=== PATIENT | female | born 1940 | race Caucasian/White ===

== ENCOUNTER → 2021-01-04 04:07 | Outpatient (REF) | payer MEDICARE, OTHER, SELFPAY ==
[2021-01-04 08:46] LABS: Absolute Lymphocyte Count 0.69 X10^3/uL (0.83-4.51); Absolute Neutrophil Count 2.5 X10^3/uL (2.0-7.7); Basophil# 0.04 X10^3/uL; Eosinophil# 0.24 X10^3/uL; Eosinophils% 6.2 % (0-5); Hematocrit 40.4 % (37-47); Hemoglobin 12.6 g/dL (12.0-15.0); Lymphocyte # 0.69 X10^3/ul (0.83-4.51); Lymphocyte % 17.8 % (19-41); Mean Corp Hgb Conc 31.2 g/dL (32-36); Mean Corpuscular Hgb 29.1 pg (27.0-32.0); Mean Corpuscular Volume 93.3 fL (81-99); Mean Platelet Vol. 9.4 fl (6.2-12.0); Monocyte% 10.3 % (0-10); NRBC Flagged by Analyzer 0 % (0-5); Neutrophil # 2.47 X10^3/uL (2.7-7.7); Neutrophil % 63.9 % (47-70); Platelet Count 164 K/mm3 (150-450); RBC Distribution Width CV 13.9 % (11.6-14.6); RBC Distribution Width SD 48.2 fl (35.1-43.9); Red Blood Count 4.33 M/mm3 (4.2-5.4); White Blood Count 3.9 K/mm3 (4.4-11.0)
[2021-01-04 08:56] LABS: ALB/GLOB Ratio 1.4 RATIO (0.9-2.4); AST(SGOT) 24 U/L (15-37); Alanine Aminotransfer ALT/SGPT 18 U/L (13-56); Albumin, Serum 3.6 g/dL (3.2-5.0); Alkaline Phosphatase 77 U/L (45-117); Anion Gap 6 (5-15); BUN 17 mg/dL (7-18); BUN/Creat Ratio 26.4 RATIO (10-20); Calcium,Total 8.5 mg/dL (8.5-10.1); Chloride 101 mmol/L (98-107); Creatinine, Serum 0.64 mg/dL (0.55-1.02); EST Glomerular Filtration Rate 94 mL/min (>60); Est Glom Filt Rate - Afr Amer 114 mL/min (>60); Globulin 2.5 g/dL (2.2-4.2); Glucose 101 mg/dL (74-106); Potassium 4.4 mmol/L (3.5-5.1); Protein, Total 6.1 g/dL (6.4-8.2); Sodium Level 135 mmol/L (136-145); Thyroid Stim Hormone (TSH) 3.39 uIU/mL (0.358-3.74)
[2021-01-04 15:52] LABS: BNP,B-Type NATRIURETIC PEPTIDE 189.6 pg/mL (0-100)
[2021-01-04 16:09] LABS: Vitamin B12 378 pg/mL (211-911)
== END ==
PROVIDERS: Referring Provider Family Medicine; Visit Provider Family Medicine
DX: I50.9 Heart failure, unspecified (principal); J44.9 Chronic obstructive pulmonary disease, unspecified; E03.9 Hypothyroidism, unspecified
CPT/HCPCS: 36415; 80053; 82607; 83880; 84443; 85025

== ENCOUNTER → 2021-01-18 05:00 | Outpatient (REF) | payer MEDICARE, OTHER, SELFPAY ==
[2021-01-18 08:33] LABS: Hematocrit 45.3 % (37-47); Hemoglobin 14.2 g/dL (12.0-15.0); Mean Corp Hgb Conc 31.3 g/dL (32-36); Mean Corpuscular Hgb 29.5 pg (27.0-32.0); Mean Corpuscular Volume 94.2 fL (81-99); Mean Platelet Vol. 9.4 fl (6.2-12.0); Platelet Count 184 K/mm3 (150-450); RBC Distribution Width CV 13.9 % (11.6-14.6); RBC Distribution Width SD 48.1 fl (35.1-43.9); Red Blood Count 4.81 M/mm3 (4.2-5.4); White Blood Count 6.1 K/mm3 (4.4-11.0)
[2021-01-18 08:52] LABS: ALB/GLOB Ratio 1.6 RATIO (0.9-2.4); AST(SGOT) 15 U/L (15-37); Alanine Aminotransfer ALT/SGPT 23 U/L (13-56); Albumin, Serum 3.9 g/dL (3.2-5.0); Alkaline Phosphatase 68 U/L (45-117); Anion Gap 4 (5-15); BUN 20 mg/dL (7-18); Calcium,Total 8.4 mg/dL (8.5-10.1); Chloride 100 mmol/L (98-107); Creatinine, Serum 0.65 mg/dL (0.55-1.02); EST Glomerular Filtration Rate 94 mL/min (>60); Est Glom Filt Rate - Afr Amer 114 mL/min (>60); Globulin 2.5 g/dL (2.2-4.2); Glucose 106 mg/dL (74-106); Potassium 4.5 mmol/L (3.5-5.1); Protein, Total 6.4 g/dL (6.4-8.2); Sodium Level 137 mmol/L (136-145)
== END ==
PROVIDERS: Visit Provider Family Medicine
DX: I48.91 Unspecified atrial fibrillation (principal); J44.9 Chronic obstructive pulmonary disease, unspecified; I10 Essential (primary) hypertension; E03.9 Hypothyroidism, unspecified
CPT/HCPCS: 36415; 80053; 84443; 85027

== ENCOUNTER → 2021-04-13 12:58 | Outpatient (CLI) | payer MEDICARE, OTHER, SELFPAY ==
--- NOTE | 2021-04-16 07:36 | PFT ---
INTRODUCTION: The patient is an 81-year-old female that presents for pulmonary function studies secondary to a diagnosis of dyspnea. Respiratory therapy reported good patient effort. Bronchodilators were used during testing. 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 There was no significant response to aerosolized bronchodilators. Spirograms are of good quality and plateau normally. Body plethysmography was performed and revealed an elevated RV to 139% of predicted, indicative of underlying air trapping. Diffusing capacity by single breath CO is reduced to 64% of predicted. IMPRESSION: Irreversible moderately severe large airways obstructive ventilatory defect with associated air trapping and symmetric reduction in diffusing capacity.
== END ==
PROVIDERS: PCP Family Medicine; Referring Provider Internal Medicine Critical Care Medicine; Visit Provider Internal Medicine Critical Care Medicine
DX: R06.00 Dyspnea, unspecified (principal)
CPT/HCPCS: 94060; 94726; 94729

== ENCOUNTER → 2021-04-14 11:58 | Outpatient (CLI) | payer MEDICARE, OTHER, SELFPAY ==
[2021-04-14 12:38] VITALS: PULSE 57; PULSE 70; PULSE 72; PULSE 75; PULSE 83; PULSE 85; O2SAT 82; O2SAT 91; O2SAT 95; O2SAT 96; O2SAT 97
--- NOTE | 2021-04-14 12:41 | CPS ---
Patient walked 120 ft and dropped to 82% after 2 min. Patient states that she normally doesn't walk more than that at the assisted living center. Patient walked 120 ft on 2L and stayed above 91% the entire time.
--- NOTE | 2021-04-16 07:47 | PCM.PSN.6M ---
PSN 6 Minute Walk Test 6 Minute Walk Test 6 Minute Walk Test: 6 Minute Walk Test PSN:6-Minute Walk Test Start: 04/14/21 12:38 Freq: Status: Active Protocol: [id number].6MINW Document 04/14/21 12:38 MIKO (Rec: 04/14/21 12:47 JLA [id number]) 6 Minute Walk Test Date Performed 04/14/21 Time Performed 12:30 Height 5 ft 2 in Weight: 109.316 kg Weight in Pounds 241.[address]: Mo Hudson Assistive device used: Walker Pre-test Oxygen Delivery Method Room Air Pulse Ox (%) 91 Pulse Rate (60-100 beats/min) 57 L Dyspnea Shaista Scale (0-10) 0 Exertion Shaista Scale (6-20) 6 1st minute Oxygen Delivery Method Room Air Pulse Ox (%) 91 Pulse Rate (60-100 beats/min) 72 2nd minute Oxygen Delivery Method Room Air Pulse Ox (%) 82 Pulse Rate (60-100 beats/min) 85 Dyspnea Shaista Scale (0-10) 2 Exertion Shaista Scale (6-20) 13 3rd minute Oxygen Flow Rate (L/min) (L/min) 2 Oxygen Delivery Method Nasal Cannula Pulse Ox (%) 97 Pulse Rate (60-100 beats/min) 70 4th minute Oxygen Flow Rate (L/min) (L/min) 2 Oxygen Delivery Method Nasal Cannula Pulse Ox (%) 96 Pulse Rate (60-100 beats/min) 83 5th minute Oxygen Flow Rate (L/min) (L/min) 2 Oxygen Delivery Method Nasal Cannula Pulse Ox (%) 95 Pulse Rate (60-100 beats/min) 75 Dyspnea Shaista Scale (0-10) 0 Exertion Shaista Scale (6-20) 13 Full Laps Walked 4 Partial Lap, Number of Tiles Walked 0 Total Distance Walked (ft) 236 04/14/21 12:41 Cardiopulmonary Services by Jeanette Rangel Patient walked 120 ft and dropped to 82% after 2 min. Patient states that she normally doesn't walk more than that at the assisted living center. Patient walked 120 ft on 2L and stayed above 91% the entire time. Initialized on 04/14/21 12:41 - END OF NOTE Interpretation Interpretation: The patient ambulated 236 feet over the course of 4 minutes with the use of a walker. Pretesting oxygen saturation was noted to be 91% on room air. With ambulation, the katie oxygen saturation was 82%. 2 L/min of supplemental oxygen was applied and the patient was able to complete the remainder of 4 minutes of testing while maintaining appropriate oxygen saturations. Recommendations Recommendations: 2 L/min of supplemental oxygen should be utilized with exertion.
== END ==
PROVIDERS: PCP Family Medicine; Referring Provider Internal Medicine Critical Care Medicine; Visit Provider Internal Medicine Critical Care Medicine
DX: R06.00 Dyspnea, unspecified (principal)
CPT/HCPCS: 94618

== ENCOUNTER 2021-07-22 04:00 | Outpatient (REF) | payer MEDICARE, OTHER, SELFPAY ==
[2021-07-22 09:10] LABS: Hemoglobin A1c 5.6 % (3.8-5.6)
== END 2021-07-22 23:59 | disposition home or self-care (01) ==
PROVIDERS: PCP Family Medicine; Referring Provider Family Medicine; Visit Provider Family Medicine
DX: E11.9 Type 2 diabetes mellitus without complications (principal)
CPT/HCPCS: 36415; 83036

== ENCOUNTER 2021-08-19 16:52 | Outpatient (CLI) | payer MEDICARE, OTHER, SELFPAY ==
--- NOTE | 2021-08-19 16:58 | CT_ITS ---
STUDY: CT SCAN FEMUR LEFT REASON FOR EXAM: Female, 81 years old. PAIN IN LT HIP -- CT LT HIP/FEMUR RADIATION DOSAGE (If Supplied By Facility): CTDIvol = ( 27.49 ) mGy, DLP = ( 1852.38 ) mGycm. Individualized dose optimization techniques were used for this CT.? TECHNIQUE: Multiple axial tomographic images of the left femur were obtained. Coronal and sagittal reconstruction was obtained as well. COMPARISON: None. FINDINGS: The patient is status post open reduction and internal fixation of the left intratrochanteric fracture utilizing compression screw fixation device. The patient is status post left total knee replacement. No evidence of fracture. No bony destruction is seen. CT/Extremity Lower without Contra IMPRESSION: No acute abnormality is seen. Electronically Signed: Bhavin Jeong MD at 15:19 EST ,
== END 2021-08-19 23:59 | disposition home or self-care (01) ==
LOC: CT 16:56
PROVIDERS: PCP Family Medicine; Referring Provider Physician Assistant; Visit Provider Physician Assistant
DX: S72.142A Displaced intertrochanteric fracture of left femur, initial encounter for closed fracture (principal); X58.XXXA Exposure to other specified factors, initial encounter
CPT/HCPCS: 73700

== ENCOUNTER → 2021-08-31 | Outpatient (REF) | payer MEDICARE, OTHER, SELFPAY ==
[2021-09-01 08:58] LABS: Mucous, Urine 0 SEEN /hpf (<or=2+)
[2021-09-01 09:20] LABS: Color, Urine Yellow (Yellow); Glucose, Dipstick Normal (Normal); Ketone-Dipstick Negative (Negative); Leukocyte Esterase-Dipstick 500 /ul (Negative); Nitrite-Dipstick Positive (Negative); Occult Blood-Urine 25 /ul (Negative); Protein-Dipstick Negative (Negative); Urine Bilirubin Dipstick Negative (Negative); Urine Clarity Cloudy (Clear); Urine Urobilinogen Normal (Normal); Urine pH 6.5 (5.0 - 8.0)
[2021-09-01 09:31] LABS: Bacteria 4+ /hpf (None Seen); Red Blood Cells-Urine 0-5 SEEN /hpf (0-5); Squamous Epithelial Cells - UA 0-5 SEEN /hpf (5-10); White Blood Cells 10-25 SEEN /hpf (0-5)
== END | disposition home or self-care (01) ==
PROVIDERS: PCP Family Medicine; Visit Provider Family Medicine
DX: N39.0 Urinary tract infection, site not specified (principal)
CPT/HCPCS: 81001; 87077; 87086; 87088; 87186

== ENCOUNTER 2021-12-15 10:00 | Outpatient (RCR) | payer MEDICARE, OTHER, SELFPAY ==
--- NOTE | 2021-10-07 10:51 | HP.PTEVAL_ITS ---
Patient's Visit Information ELÍAS GILBERT is a 81 year old F referred to Physical Therapy by Dr. Delroy Oliveira MD with a diagnosis of L femur necrosis, obesity. Date of Evaluation: 10/07/21 Physical Therapist: Esteban Loaiza DPT, OCS, CSCS - Visit Plan Frequency: 3x /Week Duration: 4-6 Weeks Plan: 3x/week for 3-6 weeks for AT to address: 1. L:E and core weakness. 2. stretch quads and HS and psoas. 3. balance and mobility. Pt will need rail at least, possibly in pool assist. Lives at [place] and will need extra time to dress and dry off after. She stated I with dressing . Is to go to bathroom prior to pool time. Not incontinent of bowel and manageable bladder with pre pool void. - Subjective Aug 16 broke L hip with a fall , had a andrew put in last July. Used a wh walker and WC since. Used cane prior. Tripped on cane in kitchen. No other falls since. L groin hurts daily to 7/10 , 0/10 at rest. Sleeps well in recliner,doesnt get in adn out of bed.. Ride stationary Nustep at home without pain. Not employed. Spends day doing puzzles and playing cards. Lives alone at [facility]-term. Dress self, bathroom self, showers with assist. Othres clean. [place] brings her here. Surgery was at [facility], seeing Tee since. Doctor wants her in pool to exercise to walk better. May get DARSHANA if she can lose weight. - Pain L groin Pain Intensity (Out of 10): 0 Pain Intensity Range: 0, 7 - Objective A and O to person, place and day. Walks back to therapy with wh walker very slowly and labored, mild SOB at end and happy to sit. Has trendelenberg with walker. Unable to move feet without AD, fear and weakness. Transfer chair I with UE. Bed trasnfer needs LE assist in and out today. Stands with fear without AD 15 seconds and steady but fearful and will not move LE or do ec. reflexes 1/3 patella and achilles B. Sensation LE WNL to gross light touch. ROM is tight in hip flexors pulling on back in elevated supine with legs straight. L hip flexion to 90 PROM, IR very painful L PROM. AROM is poor due to weaness in hips, 3-/5 in rotations and abd and ext and 3 in flexion on L. R s maureen is 3+. knees 4- ext and flexion and ankles DF/PF 4- B. - Balance/Special Test Scores Lower Extremity Functional Score: 27 TUG Test Time Seconds: 45 30 Second Chair Rise Test Seconds: 2 - Goals Goal 1:: 5 30 second sit to stand and 25 TUG to show improved mobility Goal Time Frame: 4-6 Weeks Goal 2:: Pt feel 50% less pain and improved mobility at home Goal Time Frame: 4-6 Weeks Goal 3:: I appropr HEP to minimize future problems Goal Time Frame: 4-6 Weeks Goal 4:: Able to march or take a few steps with out UE support min A Goal Time Frame: 4-6 Weeks - Rehabilitation Potential Physical Therapy Diagnosis: Sedentarism creating weakness and mobility deficits. Rehabilitation Potential: Questionable - Anticipated Interventions Patient/Client Instruction: Educate patient on: Condition, Plan of Care For the Purpose of:: To decrease pain, To increase ROM, To improve muscle performance and motor function, To increase tolerance to activity/condition/position Therapeutic Exercise to Include: Strength training, Postural training, Flexibilty training, In an aquatic setting, Passive ROM, Active ROM For the Purpose of:: To decrease pain, To increase ROM, To improve nutrient delivery to tissue, To improve muscle performance and motor function, To increase tolerance to activity/condition/position, To improve ability of physical actions for home/community/work/leisure, To improve gait and locomotor functions Thank you for the opportunity to evaluate your patient. For Medicare and Medicare HMO plans, please review the plan of care and approve it. It will need to be FAXED BACK to us at [phone] for Medicare purposes. For Medicare only, by signing this I certify the plan of care. Please let me know if there are questions or concerns regarding this plan of care. Physician Signature: Date:
--- NOTE | 2021-10-29 10:56 | HP.PTREVAL ---
Dr. Delroy Oliveira MD, It has been my pleasure to treat ELÍAS GILBERT over the last 9 visits for L femur necrosis, obesity. Please see the progress note below for an update on the physical therapy plan of care! Subjective: The pool was allright. Steps easier in the water. Got good ex. pain level 6/10 pretty consistently. Mobility is not largely different. I gotta do more, havs lost a little weight. Doing OTB and stretches at home. Objective/Function: Gait with walker slight L antalgia mod I, trasnfer easily with UE. Steps with R and two rails, weakness and pain L. Much improving TUG and sit to stand. Able to take a few steps today with out walker Min A. Plan Plan: 3x/week for 3 weeks for. 1. Gait with decreasing AD as tolerated for balance. 2. manual L leg pull and PROM hip. 3. posture and LE strength functional progressing to HEP. 4. CV exericeses(nustep) Balance/Gait/Functional tests - Balance/Special Test Scores Lower Extremity Functional Score: 16 TUG Test Time Seconds: 45 Tug Test: 20-30sec.=variable mobility 30 Second Chair Rise Test Seconds: 7 Goals Goal 1:: 5 30 second sit to stand and 25 TUG to show improved mobility Goal Time Frame: 4-6 Weeks Goal Progress: Progressing Goal 2:: Pt feel 50% less pain and improved mobility at home Goal Time Frame: 4-6 Weeks Goal 3:: I appropr HEP to minimize future problems Goal Time Frame: 4-6 Weeks Goal 4:: Able to march or take a few steps with out UE support min A Goal Time Frame: 4-6 Weeks Goal Progress: Goal Met Goal 5:: Walk 20 feet without AD I Goal Time Frame: 4-6 Weeks Goal Progress: NEW GOAL Anticipated Interventions Patient/Client Instruction: Educate patient on: Condition, Plan of Care For the Purpose of:: To decrease pain, To increase ROM, To improve muscle performance and motor function, To increase tolerance to activity/condition/position Therapeutic Exercise to Include: Strength training, Postural training, Flexibilty training, In an aquatic setting, Passive ROM, Active ROM For the Purpose of:: To decrease pain, To increase ROM, To improve nutrient delivery to tissue, To improve muscle performance and motor function, To increase tolerance to activity/condition/position, To improve ability of physical actions for home/community/work/leisure, To improve gait and locomotor functions Please do not hesitate to contact me at [phone] by phone or if you have questions or concerns regarding this new plan of care! Sincerely, Esteban Loaiza, DPT, OCS, CSCS
--- NOTE | 2021-11-26 10:56 | HP.PTREVAL_ITS ---
Dr. Delroy Oliveira MD, It has been my pleasure to treat ELÍAS GILBERT over the last 18 visits for L femur necrosis, obesity. Please see the progress note below for an update on the physical therapy plan of care! Subjective: Pt Fractured her L hip in 07/2020. She had PT after she broke her hip. She was using a cane prior to breaking her hip. Pt would like to be able to walk more normal. She still has pain with walking in her L knee with a walker. She has B knee replacements and the Dr has not looked at her knees. She saw her Dr yesterday and will get an x-ray to see what is going on. Most of her pain is in her knee on the L. 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 She lives in a [place]. She walks in the dining room and around the halls. Objective/Function: Cpmpleted by BUCK Fuentes. 30 second STS: 8 reps, no hands in standard chair (Eval 2 reps). TU.4 seconds (Eval: 45 seconds). Gait: likes to put a lot of pressure through her arms and likes to take short strides. When encouraged pt is able to take longer strides and less weight through her arm... more SOB and decreased endurance with that but encouraged pt to practice walking with less arm pressure and bigger strides to build that endurance as she wants to work towards a cane. Gait with a straight cane in R hand and holding therapist hand with CGA for approx 10 feet turn around and come back with min to mod A. It took a lot of energy out of the patient. Plan Plan: Continue twice a week for endurance walking with less use of appropriate AD... Balance/Gait/Functional tests - Balance/Special Test Scores Lower Extremity Functional Score: 21 TUG Test Time Seconds: 45 Tug Test: 20-30sec.=variable mobility 30 Second Chair Rise Test Seconds: 7 Goals Goal 1:: 5 30 second sit to stand and 25 TUG to show improved mobility Goal Time Frame: 4-6 Weeks Goal Progress: Progressing Goal 2:: Pt feel 50% less pain and improved mobility at home Goal Time Frame: 4-6 Weeks Goal 3:: I appropr HEP to minimize future problems Goal Time Frame: 4-6 Weeks Goal 4:: Able to march or take a few steps with out UE support min A Goal Time Frame: 4-6 Weeks Goal Progress: Goal Met Goal 5:: Walk 20 feet without AD I with more of a normal gait pattern. Goal Time Frame: 4-6 Weeks Goal Progress: NEW GOAL Anticipated Interventions Patient/Client Instruction: Educate patient on: Condition, Plan of Care For the Purpose of:: To decrease pain, To increase ROM, To improve muscle performance and motor function, To increase tolerance to activity/condition/position Therapeutic Exercise to Include: Strength training, Postural training, Flexibilty training, In an aquatic setting, Passive ROM, Active ROM For the Purpose of:: To decrease pain, To increase ROM, To improve nutrient delivery to tissue, To improve muscle performance and motor function, To increase tolerance to activity/condition/position, To improve ability of phy sical actions for home/community/work/leisure, To improve gait and locomotor functions Please do not hesitate to contact me at [phone] by phone or if you have questions or concerns regarding this new plan of care! Sincerely, Marilee Perez, MPT
--- NOTE | 2021-12-15 10:23 | HP.PTDCSUM ---
It has been my pleasure to treat ELÍAS GILBERT referred by Dr. Delroy Oliveira MD, with the diagnosis of L femur necrosis, obesity for a total of 24 visit(s). Discharge Date: 12/15/21 Please see the following information for a summary of their discharge status. Subjective: I think I am getting stronger. Walking with less pain. Pain 5-6/10 in L hip daily with walking. Sleeping is OK. HEP going well and doing them regularly. No falls. Does not wish to continue PT and will see Tee tomorrow hoping to get DARSHANA. L groin Pain Intensity (Out of 10): 0 % Improvement: 50 Objective/Function: TUG significant improvement. 30 sec sit to stand improving. Obvious instability in L hip with ambulation. Function is good wilth walker , still does not trust L hip and will not ambulate without walker, pain in this hip does not help the situation. Transfers I with UE. Goal 1:: 5 30 second sit to stand and 25 TUG to show improved mobility Goal Progress: Goal Met Goal 2:: Pt feel 50% less pain and improved mobility at home Goal Progress: Goal Met Goal 3:: I appropr HEP to minimize future problems Goal Progress: Goal Met Goal 4:: Able to march or take a few steps with out UE support min A Goal Progress: Goal Met Goal 5:: Walk 20 feet without AD I with more of a normal gait pattern. Goal Progress: Not Progressing Plan: d/c as pateint is to see surgeon tomorrow and is hoping for DARSHANA. Will continue HEP until further decision made. Discharge Comments: Pt to doctor tomorrow and wants other answers for L hip pain and distrust. If there are questions or concerns regarding this patient's physical therapy, please feel free to call me at [phone]. Thank you for the referral of this patient. Sincerely, Esteban Loaiza, DPT, OCS, CSCS Balance/Gait/Functional tests - Balance/Special Test Scores Lower Extremity Functional Score: 28 TUG Test Time Seconds: 15 Tug Test: 20-30sec.=variable mobility 30 Second Chair Rise Test Seconds: 9
== END 2021-12-15 14:35 | disposition home or self-care (01) ==
LOC: PT 10:00
PROVIDERS: PCP Family Medicine; Referring Provider Specialist; Visit Provider Specialist
DX: M87.052 Idiopathic aseptic necrosis of left femur (principal); E66.9 Obesity, unspecified; Z68.42 Body mass index [BMI] 45.0-49.9, adult
CPT/HCPCS: 97110; 97113; 97116; 97162; 97164; 97530

== ENCOUNTER → 2022-01-05 | Outpatient (CLI) | payer MEDICARE, OTHER, SELFPAY ==
--- NOTE | 2022-01-05 07:58 | CT_ITS ---
STUDY: CT SCAN LOWER EXTREMITY bilateral REASON FOR EXAM: Female, 81 years old. PRE OP- PINKY HIP LEFT RADIATION DOSAGE (If Supplied By Facility): CTDIvol = ( 14.10 ) mGy, DLP = ( 951.14 ) mGycm. Individualized dose optimization techniques were used for this CT.? TECHNIQUE: Multiple axial tomographic images of both hip joints, knee joints and ankle joints were obtained. Sagittal and coronal reconstruction was obtained as well. COMPARISON: Comparison is made with prior study dated 08/19/2021. FINDINGS: There is diastases of the rectus sheath. The patient is status post open reduction and internal fixation of the left intertrochanteric fracture utilizing a femoral plate and compression screw device. There is good alignment. There is evidence of a subchondral cystic changes in the femoral head. This may represent avascular necrosis. Mild degree of right hip joint narrowing with acetabular spurs. Imaging of both knee joints was obtained. The patient is status post bilateral knee replacement. There is good alignment. No fracture is seen. 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
== END | disposition home or self-care (01) ==
LOC: CT 07:55
PROVIDERS: PCP Family Medicine; Referring Provider Specialist; Visit Provider Specialist
DX: M87.252 Osteonecrosis due to previous trauma, left femur (principal)
CPT/HCPCS: 73700

== ENCOUNTER → 2022-01-12 05:10 | Outpatient (REF) | payer MEDICARE, OTHER, SELFPAY ==
[2022-01-12 09:23] LABS: Hematocrit 39.3 % (37-47); Hemoglobin 12.9 g/dL (12.0-15.0); Mean Corp Hgb Conc 32.8 g/dL (32-36); Mean Corpuscular Hgb 29.7 pg (27.0-32.0); Mean Corpuscular Volume 90.3 fL (81-99); Mean Platelet Vol. 9.7 fl (6.2-12.0); Platelet Count 133 K/mm3 (150-450); RBC Distribution Width CV 13.2 % (11.6-14.6); RBC Distribution Width SD 43.8 fl (35.1-43.9); Red Blood Count 4.35 M/mm3 (4.2-5.4)
[2022-01-12 09:58] LABS: ALB/GLOB Ratio 1.3 RATIO (0.9-2.4); AST(SGOT) 19 U/L (15-37); Alanine Aminotransfer ALT/SGPT 19 U/L (13-56); Albumin, Serum 3.2 g/dL (3.2-5.0); Alkaline Phosphatase 56 U/L (45-117); Anion Gap 5 (5-15); BUN 25 mg/dL (7-18); BUN/Creat Ratio 45.9 RATIO (10-20); Calcium,Total 8.7 mg/dL (8.5-10.1); Chloride 101 mmol/L (98-107); Creatinine, Serum 0.54 mg/dL (0.55-1.02); EST Glomerular Filtration Rate 114 mL/min (>60); Est Glom Filt Rate - Afr Amer 138 mL/min (>60); Globulin 2.4 g/dL (2.2-4.2); Glucose 103 mg/dL (74-106); Potassium 4.1 mmol/L (3.5-5.1); Protein, Total 5.6 g/dL (6.4-8.2); Sodium Level 137 mmol/L (136-145); Thyroid Stim Hormone (TSH) 0.13 uIU/mL (0.358-3.74)
== END ==
PROVIDERS: PCP Family Medicine; Visit Provider Family Medicine
DX: I48.91 Unspecified atrial fibrillation (principal); D64.9 Anemia, unspecified; J44.9 Chronic obstructive pulmonary disease, unspecified; E78.5 Hyperlipidemia, unspecified
CPT/HCPCS: 36415; 80053; 84443; 85027

== ENCOUNTER 2022-04-17 21:43 | Emergency (ER) | payer MEDICARE, OTHER, SELFPAY ==
[2022-04-17 21:44] VITALS: BP 111/63; PULSE 65; RESP 18; TEMP 36.4; O2SAT 95; BMI 40.5
--- NOTE | 2022-04-17 22:22 | EDS_ITS ---
HPI History of Present Illness Chief Complaint: Complaint Informant: patient Onset/Context/Timing Onset: Days (2-3) Context: Gradual Onset Timing: Intermittent Quality: Trouble getting urine out/emptying bladder Current Severity: Moderate Maximum Severity: Moderate Worsened by: Nothing Relieved by: Nothing Associated Symptoms Associated Symptoms: Constipation Narrative Narrative: Patient has had chronic minor issues with regards to urinary emptying, she had hip surgery at the end of February at [place] and needed to be discharged with urinary catheter. She states home health removed it about 6 or 7 days ago and ever since she has been having trouble urinating worse in the past couple days, she last urinated just prior to arrival, was only able to get a little bit out. Still feels like she needs to go. She has been constipated, she had a good bowel movement couple hours ago, so that is better for now does not feel like she needs to go now. Denies any abdominal pain right now, nausea, vomiting. She does have some pelvic discomfort when she leans forward. Patient is on Eliquis. She denies any hematuria. No bleeding from elsewhere. [facility] Medical History COPD (chronic obstructive pulmonary disease) CVA (cerebral vascular accident) Deficient knowledge of open reduction and internal (ORIF) fixation of hip Fibroadenoma of breast GERD (gastroesophageal reflux disease) Hip fracture, left History of positive PPD Hypertension Hypothyroidism Insomnia Osteoarthritis Paroxysmal atrial fibrillation Retention of urine Rheumatoid arthritis Urinary bladder incontinence Vitamin B deficiency Home Medications acetaminophen 500 mg capsule 500 mg PO Q6H PRN Pain 02/11/21 [History Last Taken Unknown] albuterol sulfate 90 mcg/actuation breath activated powder inhaler 2 inh inhalation Q6H PRN Shortness Of Breath 02/11/21 [History Last Taken Unknown] alendronate 70 mg tablet 70 mg PO QWEEK 02/11/21 [History Last Taken Unknown] carvedilol 12.5 mg tablet 12.5 mg PO BID 02/11/21 [History Last Taken Unknown] cholecalciferol (vitamin D3) 10 mcg (400 unit) capsule 1,000 unit PO DAILY 02/11/21 [History Last Taken Unknown] docusate sodium 100 mg capsule 100 mg PO DAILY 02/11/21 [History Last Taken Unknown] hydroxychloroquine 200 mg tablet 200 mg PO DAILY 02/11/21 [History Last Taken Unknown] ipratropium 0.5 mg-albuterol 3 mg (2.5 mg base)/3 mL nebulization soln 3 ml inhalation Q6H PRN Shortness Of Breath 02/11/21 [History Last Taken Unknown] levothyroxine 200 mcg capsule 200 mcg PO DAILY 02/11/21 [History Last Taken Unknown] magnesium oxide 500 mg capsule 500 mg PO DAILY 02/11/21 [History Last Taken Unknown] melatonin 10 mg capsule 10 mg PO HS PRN Sleep 02/11/21 [History Last Taken Unknown] omeprazole 20 mg capsule,delayed release 20 mg PO DAILY 02/11/21 [History Last Taken Unknown] oxybutynin chloride 10 mg tablet,extended release 24 hr 10 mg PO DAILY 02/11/21 [History Last Taken Unknown] polyethylene glycol 3350 17 gram/dose oral powder 17 g PO DAILY 02/11/21 [History Last Taken Unknown] potassium chloride 10 mEq capsule,extended release 10 meq PO DAILY 02/11/21 [History Last Taken Unknown] furosemide 20 mg tablet 20 mg PO DAILY 04/17/22 [History Last Taken Unknown] nystatin-triamcinolone topical cream 1 applic topical DAILY 04/17/22 [History Last Taken Unknown] spironolactone 25 mg tablet 25 mg PO DAILY 04/17/22 [History Last Taken Unknown] tramadol 50 mg tablet 50 mg PO BID 04/17/22 [History Last Taken Unknown] Allergy/AdvReac Type Severity Reaction Status Date / Time No Known Allergies Allergy Verified 04/17/22 21:50 Family History Sister Cancer lung cancer Brother Colon cancer Aunt Diabetes Mother Tuberculosis Surgical History H/O breast biopsy H/O: hysterectomy History of bilateral knee replacement History of cholecystectomy History of foot surgery History of right elbow replacement Status post ablation of atrial fibrillation Social History Smoking Status: Former smoker quit date: 06/26/79 pack-years: 5 how long ago did patient quit smokin years ago ROS ROS ED Constitutional Constitutional ED: Denies chills or fever(s) Eyes Eyes: Denies change in vision or diplopia ENT ENT ED: Denies rhinorrhea or sore throat Cardiovascular Cardiovascular: Denies chest pain or palpitations Respiratory/Chest Respiratory/Chest: Denies cough or dyspnea Gastrointestinal Gastrointestinal: Reports as per HPI and abdominal pain; Denies diarrhea, nausea or vomiting Genitourinary Genitourinary ED: Reports as per HPI and other Details: Urinary retention ; Denies dysuria or hematuria Musculoskeletal Musculoskeletal: Reports back pain and extremity pain; Denies neck pain Integumentary Denies abscess or rash Neurologic Neurologic: Denies headache(s), paresthesias or weakness Psychiatric Psychiatric: Denies anxiety or suicidal thoughts EXAM Physical Exam Const Vital Signs: 04/17/22 21:44 Temperature 97.6 F L Temperature Source Temporal Pulse Rate 65 Respiratory Rate 18 Blood Pressure 111/63 Blood Pressure Mean 79 Pulse Ox 95 Oxygen Delivery Method Room Air Positive well nourished, well developed and obese General Appearance ED: well developed and NAD Nutritional Appearance: obese HEENT Reports moist mucous membranes normocephalic and atraumatic Eyes PERRL and EOMs intact bilaterally Neck full ROM and supple Resp normal respiratory effort and clear to auscultation bilaterally Cardio regular rate, regular rhythm and no murmurs GI non-tender and non-distended Auscultation: normoactive bowel sounds Palpation: soft Back/Spine no CVA tenderness General Back: other FROM Extremity normal to inspection General Extremety ED: Yes edema; Negative for pulses abnormal or tenderness General Extremity: edema bilateral lower extremity Details: mild; Negative for pulses abnormal Neuro oriented x3, CN's II-XII intact bilaterally and no sensory deficits noted Sensorium / Orientation: awake and alert Motor Exam: strength 5/5 throughout Skin no rashes or lesions noted and no wounds MDM MDM MDM Narrative Medical decision making narrative: Carvajal was placed, patient had 800 cc of nonbloody transparent yellow urine, she felt much better. It does not appear to be infected on urinalysis and her renal function is normal. She is comfortable with a leg bag and being discharged home, her home health nurse is able to manage this and she should follow-up with either her doctor or urology. Lab Data Attestation: I reviewed the patient's lab results. Labs: Laboratory Results - last 24 hr 04/17/22 04/17/22 04/17/22 22:38 22:38 22:38 WBC 8.9 RBC 3.26 L Hgb 10.5 L Hct 30.8 L MCV 94.5 MCH 32.2 H MCHC 34.1 RDW Std Deviation 52.1 H RDW Coeff of Khloe 14.8 H Plt Count 180 MPV 9.2 Immature Gran % (Auto) 0.600 Neut % (Auto) 75.1 H Lymph % (Auto) 9.7 L [place] % (Auto) 12.7 H Eos % (Auto) 1.3 Baso % (Auto) 0.6 Absolute Neuts (auto) 6.7 Absolute Lymphs (auto) 0.86 Nucleated RBC % 0 Sodium 128 L Potassium 4.5 Chloride 96 L Carbon Dioxide 26.0 Anion Gap 6 BUN 20 H Creatinine 0.52 L Estim Creat Clear Calc 34.90 Est GFR (MDRD) Af Amer 145 Est GFR (MDRD) Non-Af 120 BUN/Creatinine Ratio 38.4 H Glucose 147 H Calcium 8.2 L Urine Color Yellow Urine Clarity Clear Urine pH 6.0 Ur Specific [place] 1.015 Urine Protein Negative Urine Glucose (UA) Normal Urine Ketones Negative Urine Occult Blood 10 H Urine Nitrite Negative Urine Bilirubin Negative Urine Urobilinogen Normal Ur Leukocyte Esterase 25 H Urine RBC 0 SEEN Urine WBC 0-5 SEEN Ur Squamous Epith Cells 0 SEEN Urine Bacteria RARE Urine Mucus 0 SEEN Discharge Plan Triage Chief Complaint: Complaint ED Provider: Kenny Griffith Dx/Rx/DC Orders Clinical Impression: Acute urinary retention, Anticoagulated Instructions: ED Carvajal Catheter, Care, ED Urinary Retention, Female Prescriptions: No Action acetaminophen 500 mg capsule 500 mg PO Q6H PRN (Reason: Pain) albuterol sulfate 90 mcg/actuation aerosol powdr breath activated 2 inh inhalation Q6H PRN (Reason: Shortness Of Breath) alendronate 70 mg tablet 70 mg PO QWEEK carvedilol 12.5 mg tablet 12.5 mg PO BID Rx Instructions: must administer with a meal/food docusate sodium 100 mg capsule 100 mg PO DAILY hydroxychloroquine 200 mg tablet 200 mg PO DAILY ipratropium-albuterol 0.5 mg-3 mg(2.5 mg base)/3 mL solution for nebulization 3 ml inhalation Q6H PRN (Reason: Shortness Of Breath) levothyroxine 200 mcg capsule 200 mcg PO DAILY magnesium oxide 500 mg capsule 500 mg PO DAILY melatonin 10 mg capsule 10 mg PO HS PRN (Reason: Sleep) omeprazole 20 mg capsule,delayed release(DR/EC) 20 mg PO DAILY oxybutynin chloride 10 mg tablet extended release 24hr 10 mg PO DAILY polyethylene glycol 3350 17 gram/dose powder 17 g PO DAILY potassium chloride 10 mEq capsule, extended release 10 meq PO DAILY cholecalciferol (vitamin D3) 10 mcg (400 unit) capsule 1,000 unit PO DAILY tramadol 50 mg tablet 50 mg PO BID spironolactone 25 mg tablet 25 mg PO DAILY furosemide 20 mg tablet 20 mg PO DAILY nystatin-triamcinolone Cream 1 applic TOPICAL DAILY Primary Care Provider: Cesilia Gutierrez Referrals: Cesilia Gutierrez MD [Primary Care Provider] - 3-5 Days (Call for appointment) Disposition Disposition: Home, Self Care
[2022-04-17 22:47] LABS: Absolute Lymphocyte Count 0.86 X10^3/uL (0.83-4.51); Absolute Neutrophil Count 6.7 X10^3/uL (2.0-7.7); Basophil# 0.05 X10^3/uL; Basophil% 0.6 % (0-1); Eosinophil# 0.12 X10^3/uL; Eosinophils% 1.3 % (0-5); Hematocrit 30.8 % (37-47); Hemoglobin 10.5 g/dL (12.0-15.0); Lymphocyte # 0.86 X10^3/ul (0.83-4.51); Lymphocyte % 9.7 % (19-41); Mean Corp Hgb Conc 34.1 g/dL (32-36); Mean Corpuscular Hgb 32.2 pg (27.0-32.0); Mean Corpuscular Volume 94.5 fL (81-99); Mean Platelet Vol. 9.2 fl (6.2-12.0); Monocyte# 1.13 X10^3/uL; Monocyte% 12.7 % (0-10); NRBC Flagged by Analyzer 0 % (0-5); Neutrophil % 75.1 % (47-70); Platelet Count 180 K/mm3 (150-450); RBC Distribution Width CV 14.8 % (11.6-14.6); RBC Distribution Width SD 52.1 fl (35.1-43.9); Red Blood Count 3.26 M/mm3 (4.2-5.4); White Blood Count 8.9 K/mm3 (4.4-11.0)
[2022-04-17 23:27] LABS: Anion Gap 6 (5-15); BUN 20 mg/dL (7-18); BUN/Creat Ratio 38.4 RATIO (10-20); Calcium,Total 8.2 mg/dL (8.5-10.1); Chloride 96 mmol/L (98-107); Creatinine, Serum 0.52 mg/dL (0.55-1.02); EST Glomerular Filtration Rate 120 mL/min (>60); Est Glom Filt Rate - Afr Amer 145 mL/min (>60); Glucose 147 mg/dL (74-106); Potassium 4.5 mmol/L (3.5-5.1); Sodium Level 128 mmol/L (136-145)
[2022-04-17 23:37] LABS: Color, Urine Yellow (Yellow); Glucose, Dipstick Normal (Normal); Ketone-Dipstick Negative (Negative); Leukocyte Esterase-Dipstick 25 /ul (Negative); Mucous, Urine 0 SEEN /hpf (<or=2+); Nitrite-Dipstick Negative (Negative); Occult Blood-Urine 10 /ul (Negative); Protein-Dipstick Negative (Negative); Red Blood Cells-Urine 0 SEEN /hpf (0-5); Specific Gravity, Urine 1.015 (1.002-1.030); Urine Bilirubin Dipstick Negative (Negative); Urine Clarity Clear (Clear); Urine Urobilinogen Normal (Normal)
[2022-04-17 23:46] LABS: Bacteria RARE /hpf (None Seen); Squamous Epithelial Cells - UA 0 SEEN /hpf (5-10); White Blood Cells 0-5 SEEN /hpf (0-5)
[2022-04-18 01:00] VITALS: BP 100/54; PULSE 68; RESP 18; TEMP 36.8; O2SAT 96
--- NOTE | 2022-04-18 01:14 | ED.RN ---
attempted to give report to RN at [place]. No answer.
== END 2022-04-18 01:15 | disposition home or self-care (01) ==
PROVIDERS: Emergency Provider Emergency Medicine; PCP Family Medicine; Visit Provider Emergency Medicine
DX: R33.9 Retention of urine, unspecified (principal); Z87.891 Personal history of nicotine dependence; Z86.73 Personal history of transient ischemic attack (TIA), and cerebral infarction without residual deficits; Z79.899 Other long term (current) drug therapy
CPT/HCPCS: 51702; 80048; 81001; 85025; 99285; A4216

== ENCOUNTER → 2022-07-20 | Outpatient (REF) | payer MEDICARE, OTHER, SELFPAY ==
[2022-07-21 09:41] LABS: Mucous, Urine 0 SEEN /hpf (<or=2+)
[2022-07-21 09:59] LABS: Color, Urine Yellow (Yellow); Urine Clarity Sl Cloudy (Clear)
[2022-07-21 10:00] LABS: Ketone-Dipstick Negative (Negative); Specific Gravity, Urine 1.005 (1.002-1.030); Urine Bilirubin Dipstick Negative (Negative)
[2022-07-21 10:01] LABS: Nitrite-Dipstick Negative (Negative); Protein-Dipstick 15 mg/dl (Negative); Urine Urobilinogen Normal (Normal)
[2022-07-21 10:02] LABS: Leukocyte Esterase-Dipstick 100 /ul (Negative)
[2022-07-21 10:07] LABS: Glucose, Dipstick Normal (Normal)
[2022-07-21 10:09] LABS: Occult Blood-Urine <50 /ul (Negative)
[2022-07-21 10:12] LABS: Red Blood Cells-Urine 0-5 SEEN /hpf (0-5); Squamous Epithelial Cells - UA 0-5 SEEN /hpf (5-10); White Blood Cells 50-100 SEEN /hpf (0-5)
[2022-07-21 10:13] LABS: Bacteria 2+ /hpf (None Seen); Transitional Epithelial - Ur 0-5 SEEN /hpf (0-5)
== END ==
PROVIDERS: PCP Family Medicine; Visit Provider Family Medicine
DX: N39.0 Urinary tract infection, site not specified (principal)
CPT/HCPCS: 81001; 87077; 87086; 87088; 87186

== ENCOUNTER → 2022-10-11 | Outpatient (CLI) | payer MEDICARE, OTHER, SELFPAY | END | disposition home or self-care (01) | PROVIDERS: PCP Family Medicine; Visit Provider Family Medicine | DX: R35.0 Frequency of micturition (principal) | CPT/HCPCS: 87077; 87086; 87088; 87186 ==

== ENCOUNTER → 2022-10-21 | Outpatient (CLI) | payer MEDICARE, OTHER, SELFPAY ==
--- NOTE | 2022-10-21 | IMM_PTH ---
PATIENT: ELÍAS GILBERT LOC: [facility] U#:[id number] AGE/SX: 82/F ROOM: RE10/21/[address]: Dr. Victor Hugo Morgan MD : 1940 BED: DIS: 10/21/2022 SPEC #: [id number] RECD: 10/25/22 11:31 STATUS: EDWIN REQ #: [id number] RUFUS: 10/21/22 00:[address]: Victor Hugo Morgan DEPT: IMMUNOHISTOCHEMISTRY RECD BY: Penny Tony ENTERED: 10/25/22 11:33 SP TYPE: IMMUNO OTHR DR: Dr. Cesilia Gutierrez MD Tissues: Skin of arm Procedures: Pankeratin (initial) MELAN-A (add) CD68 (ADD) S-100 (add) PHYSICIAN & INSTITUTION [place] [id number] SPECIMEN INFORMATION: Tissue Source: Right arm Clinical Info: Right arm discoloration Specimen Number: [id number] CPT code: 80664, 36802 x3 METHODOLOGY: Deparaffinized sections of prefer/formalin-fixed tissue or PAP/DQ stained slides are incubated with monoclonal/polyclonal antibodies/oligonucleotide probes. Localization is made via biotin free immunoperoxidase method. Appropriate controls are performed and reacted as expected. Results on target cell population are indicated in the following table: RESULTS: ANTIBODY / CLONE RESULT CD68 (KP-1) positive AE1-3 (AE1/AE3/PCK26) negative S-100 (4C4.9) negative Melan A (A103) negative These tests were developed and their performance characteristics determined by [facility]. They may not have been cleared or approved by the U.S. Food and Drug Administration. The FDA has determined that such clearance or approval is not necessary. The above immunohistochemical/dualISH markers are ordered and reviewed by the Pathologist. INTERPRETATION: Skin of right arm, punch biopsy: No evidence of malignancy. AM:laurie 10/26/2022
--- NOTE | 2022-10-21 | LES_PTH ---
PATIENT: ELÍAS GILBERT LOC: [facility] U#:[id number] AGE/SX: 82/F ROOM: RE10/21/[address]: Dr. Victor Hugo Morgan MD : 1940 BED: DIS: 10/21/2022 SPEC #: [id number] RECD: 10/21/22 14:18 STATUS: EDWIN DEVI #: [id number] RUFUS: 10/21/22 00:[address]: Victor Hugo Morgan DEPT: SURGICAL PATHOLOGY RECD BY: Tahir Sandhu ENTERED: 10/24/22 09:40 SP TYPE: Lesion OTHR DR: Dr. Cesilia Gutierrez MD Tissues: Skin of arm Procedures: Surgery Specimen Level IV HEADER OPERATION: Punch biopsy of right arm PRE-OP DIAGNOSIS: Right arm discoloration TISSUE SUBMITTED: Right arm tissue MICROSCOPIC DIAGNOSIS Skin lesion of right arm, punch biopsy: Mild solar elastosis. Benign histiocytes with extraneous black pigment. See comment. AM:laurie 10/25/2022 COMMENT Immunohistochemistry ([id number]) supports the above diagnosis. MICROSCOPIC DESCRIPTION Slides are reviewed. GROSS DESCRIPTION Received in fixative is one container labeled with the patient's name and designated right arm tissue. The specimen consists of a punch biopsy of contreras-brown skin measuring 0.2 cm in diameter and 0.2 cm in length. The specimen is totally submitted in one cassette. / SJ:laurie 10/24/2022 TC:3 CPT: 15259
== END | disposition home or self-care (01) ==
PROVIDERS: PCP Family Medicine; Referring Provider Surgery; Visit Provider Surgery
DX: L98.9 Disorder of the skin and subcutaneous tissue, unspecified (principal)
CPT/HCPCS: 88305; 88341; 88342

== ENCOUNTER → 2022-11-07 | Outpatient (REF) | payer MEDICARE, OTHER, SELFPAY ==
[2022-11-07 16:02] LABS: Mucous, Urine 0 SEEN /hpf (<or=2+); Red Blood Cells-Urine 0 SEEN /hpf (0-5)
[2022-11-07 16:15] LABS: Color, Urine Yellow (Yellow); Glucose, Dipstick Normal (Normal); Ketone-Dipstick Negative (Negative); Leukocyte Esterase-Dipstick 500 /ul (Negative); Nitrite-Dipstick Positive (Negative); Occult Blood-Urine 25 /ul (Negative); Protein-Dipstick 30 mg/dl (Negative); Urine Bilirubin Dipstick Negative (Negative); Urine Clarity Cloudy (Clear); Urine Urobilinogen Normal (Normal)
[2022-11-07 16:53] LABS: Bacteria 2+ /hpf (None Seen); Squamous Epithelial Cells - UA 0-5 SEEN /hpf (5-10); White Blood Cells >100 SEEN /hpf (0-5)
== END ==
PROVIDERS: PCP Family Medicine; Visit Provider Family Medicine
DX: Z79.899 Other long term (current) drug therapy (principal)
CPT/HCPCS: 81001; 87086; 87088; 87186

== ENCOUNTER → 2023-03-06 | Outpatient (REF) | payer MEDICARE, OTHER, SELFPAY ==
[2023-03-06 08:38] LABS: ALB/GLOB Ratio 1.2 RATIO (0.9-2.4); AST(SGOT) 18 U/L (15-37); Alanine Aminotransfer ALT/SGPT 19 U/L (13-56); Albumin, Serum 3.4 g/dL (3.2-5.0); Alkaline Phosphatase 72 U/L (45-117); Anion Gap 5 (5-15); BUN 16 mg/dL (7-18); BUN/Creat Ratio 29.1 RATIO (10-20); Calcium,Total 8.6 mg/dL (8.5-10.1); Chloride 104 mmol/L (98-107); Creatinine, Serum 0.55 mg/dL (0.55-1.02); EST Glomerular Filtration Rate 112 mL/min (>60); Est Glom Filt Rate - Afr Amer 136 mL/min (>60); Globulin 2.9 g/dL (2.2-4.2); Glucose 111 mg/dL (74-106); Potassium 4.5 mmol/L (3.5-5.1); Protein, Total 6.3 g/dL (6.4-8.2); Sodium Level 138 mmol/L (136-145); Thyroid Stim Hormone (TSH) 0.05 uIU/mL (0.358-3.74)
[2023-03-06 08:58] LABS: Hematocrit 41.5 % (37-47); Mean Corp Hgb Conc 31.3 g/dL (32-36); Mean Corpuscular Volume 95.8 fL (81-99); Mean Platelet Vol. 9.1 fl (6.2-12.0); Platelet Count 152 K/mm3 (150-450); RBC Distribution Width CV 12.7 % (11.6-14.6); RBC Distribution Width SD 45.1 fl (35.1-43.9); Red Blood Count 4.33 M/mm3 (4.2-5.4)
== END ==
PROVIDERS: PCP Family Medicine; Visit Provider Family Medicine
DX: E03.9 Hypothyroidism, unspecified (principal); Z79.899 Other long term (current) drug therapy
CPT/HCPCS: 36415; 80053; 84443; 85027

== ENCOUNTER → 2023-04-18 | Outpatient (REF) | payer MEDICARE, OTHER, SELFPAY ==
[2023-04-18 09:00] LABS: Thyroid Stim Hormone (TSH) 0.29 uIU/mL (0.358-3.74)
== END ==
PROVIDERS: PCP Family Medicine; Visit Provider Family Medicine
DX: E03.9 Hypothyroidism, unspecified (principal)
CPT/HCPCS: 36415; 84443

== ENCOUNTER → 2023-06-12 | Outpatient (REF) | payer MEDICARE, OTHER, SELFPAY ==
[2023-06-12 09:45] LABS: Thyroid Stim Hormone (TSH) 2.06 uIU/mL (0.358-3.74)
== END ==
PROVIDERS: PCP Family Medicine; Referring Provider Family Medicine; Visit Provider Family Medicine
DX: E03.9 Hypothyroidism, unspecified (principal)
CPT/HCPCS: 36415; 84443

== ENCOUNTER → 2023-07-06 | Outpatient (REF) | payer MEDICARE, OTHER, SELFPAY ==
[2023-07-06 08:32] LABS: Hematocrit 41.9 % (37-47); Hemoglobin 13.5 g/dL (12.0-15.0); Mean Corp Hgb Conc 32.2 g/dL (32-36); Mean Corpuscular Hgb 29.7 pg (27.0-32.0); Mean Corpuscular Volume 92.1 fL (81-99); Platelet Count 142 K/mm3 (150-450); RBC Distribution Width SD 43.6 fl (35.1-43.9); Red Blood Count 4.55 M/mm3 (4.2-5.4); White Blood Count 4.3 K/mm3 (4.4-11.0)
[2023-07-06 09:03] LABS: ALB/GLOB Ratio 1.3 RATIO (0.9-2.4); AST(SGOT) 14 U/L (15-37); Alanine Aminotransfer ALT/SGPT 15 U/L (13-56); Albumin, Serum 3.4 g/dL (3.2-5.0); Alkaline Phosphatase 66 U/L (45-117); Anion Gap 3 (5-15); BUN 19 mg/dL (7-18); BUN/Creat Ratio 29.2 RATIO (10-20); Calcium,Total 8.8 mg/dL (8.5-10.1); Chloride 101 mmol/L (98-107); Creatinine, Serum 0.65 mg/dL (0.55-1.02); EST Glomerular Filtration Rate 93 mL/min (>60); Est Glom Filt Rate - Afr Amer 112 mL/min (>60); Globulin 2.6 g/dL (2.2-4.2); Glucose 121 mg/dL (74-106); Potassium 4.2 mmol/L (3.5-5.1); Sodium Level 137 mmol/L (136-145); Thyroid Stim Hormone (TSH) 2.44 uIU/mL (0.358-3.74)
== END ==
PROVIDERS: PCP Family Medicine; Visit Provider Family Medicine
DX: E03.9 Hypothyroidism, unspecified (principal); E55.9 Vitamin D deficiency, unspecified; D50.9 Iron deficiency anemia, unspecified
CPT/HCPCS: 36415; 80053; 84443; 85027

== ENCOUNTER → 2024-01-01 | Outpatient (REF) | payer MEDICARE, OTHER, SELFPAY ==
[2024-01-01 10:02] LABS: Hematocrit 41.9 % (37-47); Hemoglobin 13.3 g/dL (12.0-15.0); Mean Corp Hgb Conc 31.7 g/dL (32-36); Mean Corpuscular Hgb 30.4 pg (27.0-32.0); Mean Corpuscular Volume 95.9 fL (81-99); Mean Platelet Vol. 9.4 fl (6.2-12.0); Platelet Count 172 K/mm3 (150-450); RBC Distribution Width CV 12.9 % (11.6-14.6); Red Blood Count 4.37 M/mm3 (4.2-5.4); White Blood Count 4.5 K/mm3 (4.4-11.0)
[2024-01-01 11:08] LABS: ALB/GLOB Ratio 1.5 RATIO (0.9-2.4); AST(SGOT) 23 U/L (15-37); Alanine Aminotransfer ALT/SGPT 18 U/L (13-56); Albumin, Serum 3.8 g/dL (3.2-5.0); Alkaline Phosphatase 74 U/L (45-117); Anion Gap 6 (5-15); BUN 25 mg/dL (7-18); BUN/Creat Ratio 39.7 RATIO (10-20); Calcium,Total 8.8 mg/dL (8.5-10.1); Chloride 102 mmol/L (98-107); Creatinine, Serum 0.63 mg/dL (0.55-1.02); EST Glomerular Filtration Rate 96 mL/min (>60); Est Glom Filt Rate - Afr Amer 116 mL/min (>60); Globulin 2.5 g/dL (2.2-4.2); Glucose 121 mg/dL (74-106); Potassium 4.3 mmol/L (3.5-5.1); Protein, Total 6.3 g/dL (6.4-8.2); Sodium Level 137 mmol/L (136-145); Thyroid Stim Hormone (TSH) 4.08 uIU/mL (0.358-3.74)
== END ==
PROVIDERS: PCP Family Medicine; Visit Provider Family Medicine
DX: J44.9 Chronic obstructive pulmonary disease, unspecified (principal); E03.9 Hypothyroidism, unspecified; Z79.899 Other long term (current) drug therapy; D50.9 Iron deficiency anemia, unspecified; I10 Essential (primary) hypertension; I48.20 Chronic atrial fibrillation, unspecified; Z86.73 Personal history of transient ischemic attack (TIA), and cerebral infarction without residual deficits
CPT/HCPCS: 36415; 80053; 84443; 85027

== ENCOUNTER → 2024-02-07 | Outpatient (REF) | payer MEDICARE, OTHER, SELFPAY ==
[2024-02-07 08:19] LABS: Mucous, Urine 0 SEEN /hpf (<or=2+)
[2024-02-07 08:50] LABS: Color, Urine Yellow (Yellow); Glucose, Dipstick Normal (Normal); Ketone-Dipstick Negative (Negative); Leukocyte Esterase-Dipstick 500 /ul (Negative); Nitrite-Dipstick Negative (Negative); Occult Blood-Urine 25 /ul (Negative); Protein-Dipstick 30 mg/dl (Negative); Specific Gravity, Urine 1.015 (1.002-1.030); Urine Bilirubin Dipstick Negative (Negative); Urine Clarity Sl. Cloudy (Clear); Urine Urobilinogen 1 mg/dl (Normal)
[2024-02-07 09:18] LABS: Bacteria 4+ /hpf (None Seen); White Blood Cells >100 SEEN /hpf (0-5)
[2024-02-07 09:19] LABS: Red Blood Cells-Urine 0-5 SEEN /hpf (0-5); Renal Epithelial Cells 0-5 SEEN /hpf (0-5); Squamous Epithelial Cells - UA 0-5 SEEN /hpf (5-10)
== END ==
PROVIDERS: PCP Family Medicine
DX: N39.0 Urinary tract infection, site not specified (principal)
CPT/HCPCS: 81001; 87077; 87086; 87088; 87186

== ENCOUNTER → 2024-03-11 | Outpatient (REF) | payer MEDICARE, OTHER, SELFPAY ==
[2024-03-11 09:50] LABS: T4 Total, Thyroxin 10.3 ug/dL (4.8-13.9)
== END ==
PROVIDERS: PCP Family Medicine; Visit Provider Family Medicine
DX: E03.9 Hypothyroidism, unspecified (principal)
CPT/HCPCS: 36415; 84436; 84443

== ENCOUNTER → 2024-05-07 | Outpatient (REF) | payer MEDICARE, OTHER, SELFPAY ==
[2024-05-07 08:12] LABS: Hematocrit 44.8 % (37-47); Hemoglobin 14.2 g/dL (12.0-15.0); Mean Corp Hgb Conc 31.7 g/dL (32-36); Mean Corpuscular Hgb 29.5 pg (27.0-32.0); Mean Corpuscular Volume 93.1 fL (81-99); Mean Platelet Vol. 8.8 fl (6.2-12.0); Platelet Count 199 K/mm3 (150-450); RBC Distribution Width CV 12.9 % (11.6-14.6); RBC Distribution Width SD 44.5 fl (35.1-43.9); Red Blood Count 4.81 M/mm3 (4.2-5.4); White Blood Count 7.1 K/mm3 (4.4-11.0)
[2024-05-07 08:28] LABS: Vitamin D,25 Hydroxy 36.2 ng/mL
[2024-05-07 08:45] LABS: ALB/GLOB Ratio 1.4 RATIO (0.9-2.4); AST(SGOT) 14 U/L (15-37); Alanine Aminotransfer ALT/SGPT 17 U/L (13-56); Albumin, Serum 3.6 g/dL (3.2-5.0); Alkaline Phosphatase 64 U/L (45-117); Anion Gap 7 (5-15); BUN 20 mg/dL (7-18); BUN/Creat Ratio 26.5 RATIO (10-20); Calcium,Total 8.8 mg/dL (8.5-10.1); Chloride 98 mmol/L (98-107); Cholesterol 149 mg/dL (200); Creatinine, Serum 0.76 mg/dL (0.55-1.02); EST Glomerular Filtration Rate 78 mL/min (>60); Est Glom Filt Rate - Afr Amer 94 mL/min (>60); Globulin 2.5 g/dL (2.2-4.2); Glucose 117 mg/dL (74-106); High Density Lipoprotein 57 mg/dL; Potassium 4.4 mmol/L (3.5-5.1); Protein, Total 6.1 g/dL (6.4-8.2); Sodium Level 134 mmol/L (136-145); T4 Total, Thyroxin 12.1 ug/dL (4.8-13.9); Thyroid Stim Hormone (TSH) 0.416 uIU/mL (0.358-3.740); Triglycerides 115 mg/dL; Very Low Density Lipoprotein 23 mg/dL (5-40)
[2024-05-07 09:07] LABS: Hemoglobin A1c 5.8 % (3.8-5.6)
== END ==
PROVIDERS: PCP Family Medicine; Visit Provider Family Medicine
DX: Z86.16 Personal history of COVID-19 (principal); E55.9 Vitamin D deficiency, unspecified; J44.9 Chronic obstructive pulmonary disease, unspecified; I10 Essential (primary) hypertension; E78.5 Hyperlipidemia, unspecified; E03.9 Hypothyroidism, unspecified; Z79.899 Other long term (current) drug therapy
CPT/HCPCS: 36415; 80053; 80061; 82306; 83036; 84436; 84443; 85027

== ENCOUNTER → 2024-05-09 | Outpatient (REF) | payer MEDICARE, OTHER, SELFPAY ==
[2024-05-09 09:22] LABS: ALB/GLOB Ratio 1.4 RATIO (0.9-2.4); AST(SGOT) 18 U/L (15-37); Alanine Aminotransfer ALT/SGPT 18 U/L (13-56); Albumin, Serum 3.4 g/dL (3.2-5.0); Alkaline Phosphatase 65 U/L (45-117); Anion Gap 5 (5-15); BUN 19 mg/dL (7-18); BUN/Creat Ratio 25.1 RATIO (10-20); Calcium,Total 8.6 mg/dL (8.5-10.1); Chloride 97 mmol/L (98-107); Cholesterol 137 mg/dL (200); Creatinine, Serum 0.76 mg/dL (0.55-1.02); EST Glomerular Filtration Rate 78 mL/min (>60); Est Glom Filt Rate - Afr Amer 94 mL/min (>60); Globulin 2.4 g/dL (2.2-4.2); Glucose 124 mg/dL (74-106); High Density Lipoprotein 51 mg/dL; Potassium 5.2 mmol/L (3.5-5.1); Protein, Total 5.8 g/dL (6.4-8.2); Sodium Level 131 mmol/L (136-145); T4 Total, Thyroxin 10.9 ug/dL (4.8-13.9); Thyroid Stim Hormone (TSH) 0.435 uIU/mL (0.358-3.740); Triglycerides 95 mg/dL; Very Low Density Lipoprotein 19 mg/dL (5-40)
[2024-05-09 10:04] LABS: Hemoglobin A1c 5.9 % (3.8-5.6)
== END ==
PROVIDERS: PCP Family Medicine; Visit Provider Family Medicine
DX: E78.5 Hyperlipidemia, unspecified (principal); E03.9 Hypothyroidism, unspecified; E55.9 Vitamin D deficiency, unspecified; I10 Essential (primary) hypertension; J44.9 Chronic obstructive pulmonary disease, unspecified; Z79.899 Other long term (current) drug therapy
CPT/HCPCS: 36415; 80053; 80061; 82306; 83036; 84436; 84443

== ENCOUNTER → 2024-06-04 05:00 | Outpatient (REF) | payer MEDICARE, OTHER, SELFPAY ==
[2024-06-04 08:25] LABS: Hematocrit 37.9 % (37-47); Hemoglobin 12.5 g/dL (12.0-15.0); Mean Corpuscular Hgb 30.3 pg (27.0-32.0); Platelet Count 151 K/mm3 (150-450); RBC Distribution Width CV 13.2 % (11.6-14.6); RBC Distribution Width SD 44.6 fl (35.1-43.9); Red Blood Count 4.12 M/mm3 (4.2-5.4); White Blood Count 4.6 K/mm3 (4.4-11.0)
== END ==
PROVIDERS: PCP Family Medicine; Visit Provider Family Medicine
DX: Z79.899 Other long term (current) drug therapy (principal); K64.9 Unspecified hemorrhoids
CPT/HCPCS: 36415; 85027

== ENCOUNTER → 2024-07-09 | Outpatient (REF) | payer MEDICARE, OTHER, SELFPAY ==
[2024-07-09 08:58] LABS: Absolute Lymphocyte Count 1.06 X10^3/uL (0.83-4.51); Absolute Neutrophil Count 4.7 X10^3/uL (2.0-7.7); Basophil# 0.04 X10^3/uL; Basophil% 0.6 % (0-1); Eosinophil# 0.09 X10^3/uL; Eosinophils% 1.4 % (0-5); Hematocrit 40.5 % (37-47); Hemoglobin 13.5 g/dL (12.0-15.0); Lymphocyte # 1.06 X10^3/ul (0.83-4.51); Lymphocyte % 16.5 % (19-41); Mean Corp Hgb Conc 33.3 g/dL (32-36); Mean Corpuscular Hgb 30.7 pg (27.0-32.0); Mean Platelet Vol. 9.2 fl (6.2-12.0); Monocyte# 0.48 X10^3/uL; Monocyte% 7.5 % (0-10); NRBC Flagged by Analyzer 0 % (0-5); Neutrophil % 73.4 % (47-70); Platelet Count 183 K/mm3 (150-450); RBC Distribution Width CV 13.6 % (11.6-14.6); RBC Distribution Width SD 46.7 fl (35.1-43.9); White Blood Count 6.4 K/mm3 (4.4-11.0)
[2024-07-09 09:12] LABS: ALB/GLOB Ratio 1.3 RATIO (0.9-2.4); AST(SGOT) 17 U/L (15-37); Alanine Aminotransfer ALT/SGPT 19 U/L (13-56); Albumin, Serum 3.2 g/dL (3.2-5.0); Alkaline Phosphatase 61 U/L (45-117); Anion Gap 3 (5-15); BUN 18 mg/dL (7-18); BUN/Creat Ratio 31.1 RATIO (10-20); Calcium,Total 8.1 mg/dL (8.5-10.1); Chloride 103 mmol/L (98-107); Cholesterol 105 mg/dL (200); Creatinine, Serum 0.58 mg/dL (0.55-1.02); EST Glomerular Filtration Rate 106 mL/min (>60); Est Glom Filt Rate - Afr Amer 128 mL/min (>60); Globulin 2.5 g/dL (2.2-4.2); Glucose 104 mg/dL (74-106); High Density Lipoprotein 40 mg/dL; Potassium 4.4 mmol/L (3.5-5.1); Protein, Total 5.7 g/dL (6.4-8.2); Sodium Level 136 mmol/L (136-145); Thyroid Stim Hormone (TSH) 0.303 uIU/mL (0.358-3.740); Triglycerides 88 mg/dL; Very Low Density Lipoprotein 18 mg/dL (5-40)
[2024-07-09 09:18] LABS: Vitamin B12 218 pg/mL (211-911); Vitamin D,25 Hydroxy 51.8 ng/mL
[2024-07-09 09:30] LABS: Hemoglobin A1c 5.4 % (3.8-5.6)
== END ==
PROVIDERS: PCP Family Medicine; Visit Provider Family Medicine
DX: I48.91 Unspecified atrial fibrillation (principal); I10 Essential (primary) hypertension; E78.5 Hyperlipidemia, unspecified; E03.9 Hypothyroidism, unspecified; E55.9 Vitamin D deficiency, unspecified; Z79.899 Other long term (current) drug therapy
CPT/HCPCS: 36415; 80053; 80061; 82306; 82607; 83036; 84443; 85025

== ENCOUNTER → 2024-08-26 | Outpatient (REF) | payer MEDICARE, OTHER, SELFPAY ==
[2024-08-26 08:15] LABS: Erythrocyte Sedimentation Rate 4 mm/hr (0-30)
[2024-08-26 08:18] LABS: Absolute Lymphocyte Count 0.96 X10^3/uL (0.83-4.51); Absolute Neutrophil Count 7.2 X10^3/uL (2.0-7.7); Basophil# 0.04 X10^3/uL; Basophil% 0.4 % (0-1); Eosinophil# 0.18 X10^3/uL; Hematocrit 38.2 % (37-47); Hemoglobin 12.4 g/dL (12.0-15.0); Lymphocyte # 0.96 X10^3/ul (0.83-4.51); Lymphocyte % 10.5 % (19-41); Mean Corp Hgb Conc 32.5 g/dL (32-36); Mean Corpuscular Volume 95.5 fL (81-99); Mean Platelet Vol. 8.6 fl (6.2-12.0); Monocyte# 0.64 X10^3/uL; NRBC Flagged by Analyzer 0 % (0-5); Neutrophil # 7.19 X10^3/uL (2.7-7.7); Platelet Count 292 K/mm3 (150-450); RBC Distribution Width CV 14.1 % (11.6-14.6); RBC Distribution Width SD 48.7 fl (35.1-43.9); White Blood Count 9.1 K/mm3 (4.4-11.0)
== END ==
LOC: OLS.BROOKB 05:00
PROVIDERS: PCP Family Medicine; Visit Provider Family Medicine
DX: T84.098A Other mechanical complication of other internal joint prosthesis, initial encounter (principal)
CPT/HCPCS: 36415; 85025; 85652; 86140

== ENCOUNTER → 2024-09-04 | Outpatient (REF) | payer MEDICARE, OTHER, SELFPAY ==
[2024-09-05 07:32] LABS: Mucous, Urine 0 SEEN /hpf (<or=2+)
[2024-09-05 07:49] LABS: Color, Urine Yellow (Yellow); Glucose, Dipstick Normal (Normal); Ketone-Dipstick Negative (Negative); Leukocyte Esterase-Dipstick 500 /ul (Negative); Nitrite-Dipstick Positive (Negative); Occult Blood-Urine 10 /ul (Negative); Protein-Dipstick 15 mg/dl (Negative); Specific Gravity, Urine 1.015 (1.002-1.030); Urine Bilirubin Dipstick Negative (Negative); Urine Clarity Cloudy (Clear); Urine Urobilinogen 1 mg/dl (Normal)
[2024-09-05 07:59] LABS: White Blood Cells 25-50 SEEN /hpf (0-5)
[2024-09-05 08:00] LABS: Bacteria 2+ /hpf (None Seen); Calcium Oxalate Crystals Ur 1+ /hpf (<or=2+); Red Blood Cells-Urine 0 SEEN /hpf (0-5); Squamous Epithelial Cells - UA 5-10 SEEN /hpf (5-10)
== END ==
PROVIDERS: PCP Family Medicine; Referring Provider Family Medicine; Visit Provider Family Medicine
DX: R41.82 Altered mental status, unspecified (principal); R10.9 Unspecified abdominal pain
CPT/HCPCS: 81001; 87077; 87086; 87088; 87186

== ENCOUNTER → 2024-10-08 | Outpatient (REF) | payer MEDICARE, SELFPAY ==
[2024-10-09 07:39] LABS: Mucous, Urine 0 SEEN /hpf (<or=2+)
[2024-10-09 08:04] LABS: Color, Urine Yellow (Yellow); Ketone-Dipstick Negative (Negative); Leukocyte Esterase-Dipstick 500 /ul (Negative); Protein-Dipstick 30 mg/dl (Negative); Urine Bilirubin Dipstick Negative (Negative); Urine Clarity Sl. Cloudy (Clear)
[2024-10-09 08:29] LABS: Nitrite-Dipstick Positive (Negative)
[2024-10-09 08:30] LABS: Occult Blood-Urine 25 /ul (Negative); Specific Gravity, Urine 1.015 (1.002-1.030); Urine Urobilinogen 4 mg/dl (Normal)
[2024-10-09 08:31] LABS: White Blood Cells 50-100 SEEN /hpf (0-5)
[2024-10-09 08:32] LABS: Bacteria 3+ /hpf (None Seen); Red Blood Cells-Urine 0-5 SEEN /hpf (0-5); Squamous Epithelial Cells - UA 0-5 SEEN /hpf (5-10)
[2024-10-09 08:39] LABS: Glucose, Dipstick 1000 mg/dl (Normal)
== END ==
PROVIDERS: PCP Family Medicine; Visit Provider Family Medicine
DX: N39.0 Urinary tract infection, site not specified (principal)
CPT/HCPCS: 81001

== ENCOUNTER → 2024-10-09 | Outpatient (REF) | payer MEDICARE, OTHER, SELFPAY ==
[2024-10-09 19:20] LABS: Color, Urine Straw (Yellow); Glucose, Dipstick Normal (Normal); Ketone-Dipstick Negative (Negative); Leukocyte Esterase-Dipstick 500 /ul (Negative); Nitrite-Dipstick Positive (Negative); Occult Blood-Urine 10 /ul (Negative); Protein-Dipstick 15 mg/dl (Negative); Urine Bilirubin Dipstick Negative (Negative); Urine Clarity Clear (Clear); Urine Urobilinogen Normal (Normal)
== END ==
PROVIDERS: PCP Family Medicine; Visit Provider Family Medicine
DX: N39.0 Urinary tract infection, site not specified (principal)
CPT/HCPCS: 81002; 87077; 87086; 87088; 87186

== ENCOUNTER → 2024-12-26 | Outpatient (CLI) | payer MEDICARE, SELFPAY | END | disposition home or self-care (01) | PROVIDERS: Referring Provider Internal Medicine Critical Care Medicine; Visit Provider Internal Medicine Critical Care Medicine | DX: R06.00 Dyspnea, unspecified (principal) | CPT/HCPCS: 94060; 94726; 94729 ==